=== PATIENT | female | born 1960 | race Caucasian/White ===

== ENCOUNTER 2021-09-20 14:43 | Emergency (ER) | payer OTHER, SELFPAY ==
[2021-09-20 14:48] VITALS: BP 150/74; PULSE 58; RESP 18; TEMP 36.6; O2SAT 99; BMI 26.6
--- NOTE | 2021-09-20 15:02 | CRLHL7_ITS ---
For Patients: As a result of the Century Cures Act, medical imaging exams and procedure reports are released immediately into your electronic medical record. You may view this report before your referring provider. If you have questions, please contact your health care provider. HISTORY: Left lower quadrant abdominal pain. TECHNIQUE: Noncontrast CT abdomen and pelvis. COMPARISON: No prior. FINDINGS: No focal liver parenchymal abnormality. Cholecystectomy. Dilatation of the extrahepatic bile duct may reflect postcholecystectomy reservoir effect changes. Spleen size within normal limits. The adrenal glands normal. No focal pancreatic abnormality. - On the left, there is severe hydronephrosis. There is a 6.5 mm calculus within the proximal left ureter as seen on image #87 of series 2. Other left retroperitoneal calcifications present close to the ureter are vascular in nature. There are intrarenal calculi within the left renal collecting system also present. On the right, there are intrarenal calculi. A fluid density right renal lesion inferiorly measures approximately 3.3 cm in size and may reflect a cyst. No right-sided hydronephrosis. No right ureteral calculus. Urinary bladder does not appear excessively distended. Small pelvic calcifications likely represent phleboliths. - Postsurgical changes of gastric bypass. A small hiatal hernia is present. There is no small bowel obstruction. No acute diverticulitis. - No abdominal aortic aneurysm. No adenopathy. - No consolidation within the lung bases nor pleural effusion. - Degenerative changes of the spine. No acute fractures. IMPRESSION: 1. On the left, severe hydronephrosis secondary to a 6.5 mm calculus within the proximal ureter. Additional intrarenal calculi are present on the left. 2. On the right, intrarenal calculi. No ureteral calculus or hydronephrosis. There is likely a cyst at the inferior pole of the right kidney. 3. Dilatation of the extrahepatic bile duct may reflect postcholecystectomy reservoir effect changes. 4. Postsurgical changes of gastric bypass. A small hiatal hernia is present. Dictated by Jose Roberto Vasquez MD @ 09/20/2021 4:16:23 PM Please note that all CT scans at this facility use dose modulation, iterative reconstruction, and/or weight-based dosing when appropriate to reduce radiation dose to as low as reasonably achievable. Dictated by: Jose Roberto Vaqsuez MD @ 09/20/2021 16:16:27 (Electronically Signed)
--- NOTE | 2021-09-20 15:07 | ED_ITS ---
HPI - General Adult General Chief complaint: Abdominal Pain Stated complaint: Left side pain Time Seen by Provider: 09/20/21 14:56 Source: patient Mode of arrival: ambulatory Limitations: no limitations History of Present Illness HPI narrative: 61-year-old female coming in today complaining of abdominal pain going on for approximately 3 hours. Pain came on suddenly located in the left lower quadrant radiates around to her back. She states she has vomited a few times. She has had about 5 bowel movements today which is usual for her. She denies any urinary symptoms such as increased frequency, urgency or dysuria. She denies any fevers or chills. Nothing seems to make the pain better or worse. She denies any blood in her urine or stools. No blood in her vomitus. No recent traveling. States that she has had bariatric surgery, cholecystectomy, appendectomy and a tubal ligation in the past. She also has a history of rheumatoid arthritis, migraine headaches, hyperlipidemia, TMJ disorder. States that her mother has had pancreatic cancer in sister had a twisted bowel in recent years. She states that she last had a colonoscopy all 7 years ago she believes it was normal. Related Data Home Medications Medication Instructions Recorded Confirmed adalimumab 40 mg/0.4 mL mg SUBCUT 09/20/21 subcutaneous pen kit (Humira(CF) Pen) atenolol 50 mg tablet mg 09/20/21 celecoxib 200 mg capsule mg 09/20/21 prednisone 1 mg tablet mg 09/20/21 rizatriptan 10 mg tablet mg 09/20/21 Allergies Allergy/AdvReac Type Severity Reaction Status Date / Time Penicillins Allergy Verified 09/20/21 14:47 Review of Systems Status of ROS: Reports: 10 or more systems reviewed and unremarkable except as noted in History and below [facility] Social History Smoking Status: Never smoker Do you use any of these nicotine containing products: None Second hand tobacco smoke exposure: No How often do you have a drink containing alcohol: monthly or less How often do you have six or more drinks on one occasion: Less than monthly AUDIT-C Alcohol total score: 2 Non-prescribed substance use: denies use Exam Narrative: Exam Narrative: Well-nourished well-developed patient who appears uncomfortable. Alert and oriented. Answers questions appropriately. Mood and affect are appropriate. Thoughts are goal oriented and rational. No tangential or magical thinking noted. Patient speaks in full sentences without needing to catch their breath. HEENT: Normocephalic atraumatic. Pupils are equally round reactive to light. Extraocular muscles are intact. Conjunctivae are moist without any icterus noted. Slightly dry mucous membranes. Posterior pharynx is normal. Neck is soft without any lymphadenopathy or thyromegaly. No masses are appreciated. Cardiovascular: Heart is regular rate and rhythm S1 and S2 are present without any murmurs. Lungs: Clear to auscultation bilaterally no wheezes rhonchi or rales are apprec iated. Patient takes deep breaths without any discomfort. Abdomen: Soft and nondistended. She does have left lower quadrant tenderness with palpation. No rebound tenderness. She has no CVA tenderness. Extremities: Bilateral lower extremities are without edema. Normal DP and PT pulses. Skin: Well perfused without any obvious rashes. Const: Vital Signs, click to edit/add: Vital Signs - 24 hr 09/20/21 14:48 09/20/21 16:15 09/20/21 16:30 Temperature 97.8 F Pulse Rate [Right Pulse Oximeter] 58 L 115 H 139 H Respiratory Rate 18 Blood Pressure [Ri ght Upper Arm] 150/74 H 121/72 126/93 H Pulse Oximetry 99 98 98 Course Course Hospital Course: IV was established and she was started on normal saline and IV Zofran. Labs were drawn. When it was clear that patient had a kidney stone seen on CT scan, we did go ahead and give her a dose of IV Toradol which significantly helped her symptoms. Vital Signs Vital signs: Initial Vital Signs Temperature 97.8 F 09/20/21 14:48 Temperature Source Temporal Artery Scan 09/20/21 14:48 Pulse Rate 58 L 09/20/21 14:48 Respiratory Rate 18 09/20/21 14:48 Blood Pressure 150/74 H 09/20/21 14:48 Blood Pressure Mean 99 09/20/21 14:48 Pulse Oximetry 99 09/20/21 14:48 Oxygen Delivery Method 09/20/21 14:48 Vital Signs Temperature 97.8 F 09/20/21 14:48 Pulse Rate 58 L 09/20/21 14:48 Respiratory Rate 18 09/20/21 14:48 Blood Pressure 150/74 H 09/20/21 14:48 Pulse Oximetry 99 09/20/21 14:48 Temperature 97.8 F 09/20/21 14:48 Pulse Rate 139 H 09/20/21 16:30 Respiratory Rate 18 09/20/21 14:48 Blood Pressure 126/93 H 09/20/21 16:30 Pulse Oximetry 98 09/20/21 16:30 Medical Decision Making MDM Narrative Medical decision making narrative: 61-year-old female with left-sided kidney stone and resulting hydronephrosis-no evidence of infection were changes in renal function. Pain was well controlled with Toradol in the ER today. She had no more episodes of vomiting. Patient will be discharged home with Toradol and Percocet to take as needed for the time being. She will call back 1st thing in the morning to set up an appointment with Urology. She understands if she develops a fever or pain that cannot be c ontrolled she will go ahead and return to the ED. Lab Data Lab results reviewed: Yes I reviewed the patient's lab results Labs: Lab Results 09/20/21 09/20/21 09/20/21 Range/Units 15:20 15:20 15:20 ESR 7 (2-20) mm/hr Sodium 140 (135-149) mmol/L Potassium 3.9 (3.6-5.1) mmol/L Chloride 107 (96-114) mmol/L Carbon Dioxide 28 (20-32) mmol/L BUN 11 (7-30) mg/dL Creatinine 0.8 (0.5-1.5) mg/dL Estimated Creat Clear 58.84 Estimated GFR 83 ml/min Glucose 133 H (60-115) mg/dL Lactate (0.5-1.9) mmol/L Calcium 8.9 (8.4-10.6) mg/dL Total Bilirubin 0.8 (0.1-1.5) mg/dL Direct Bilirubin 0.2 (0.0-0.5) mg/dL AST 31 (12-35) U/L ALT 32 (4-35) U/L Alkaline Phosphatase 104 (40-150) U/L C-Reactive Protein < 0.5 L (0.5-1.0) mg/dL Total Protein 7.2 (6.0-8.3) g/dL Albumin 4.4 (3.3-5.0) g/dL Lipase 185 (23-300) U/L Urine Color Yellow (Yellow) Urine Appearance Cloudy A (Clear) Urine pH 5.5 (5.0-8.5) Ur Specific [place] 1.025 (1.000-1.030) Urine Protein 1+ A (Negative) Urine Glucose (UA) Negative (Negative) Urine Ketones Negative (Negative) Urine Blood 2+ A (Negative) Urine Nitrite Positive A (Negative) Urine Bilirubin Negative (Negative) Urine Urobilinogen 0.2 (0.2-1.0) Ur Leukocyte Esterase 3+ A (Negative) Urine RBC 2-5 A (0-2) Urine WBC 25-50 A (0-5) Ur Squamous Epith Cells None (None-Few) Urine Bacteria Moderate A (None) 09/20/21 Range/Units 15:20 ESR (2-20) mm/hr Sodium (135-149) mmol/L Potassium (3.6-5.1) mmol/L Chloride (96-114) mmol/L Carbon Dioxide (20-32) mmol/L BUN (7-30) mg/dL Creatinine (0.5-1.5) mg/dL Estimated Creat Clear Estimated GFR ml/min Glucose (60-115) mg/dL Lactate 1.3 (0.5-1.9) mmol/L Calcium (8.4-10.6) mg/dL Total Bilirubin (0.1-1.5) mg/dL Direct Bilirubin (0.0-0.5) mg/dL AST (12-35) U/L ALT (4-35) U/L Alkaline Phosphatase (40-150) U/L C-Reactive Protein (0.5-1.0) mg/dL Total Protein (6.0-8.3) g/dL Albumin (3.3-5.0) g/dL Lipase (23-300) U/L Urine Color (Yellow) Urine Appearance (Clear) Urine pH (5.0-8.5) Ur Specific [place] (1.000-1.030) Urine Protein (Negative) Urine Glucose (UA) (Negative) Urine Ketones (Negative) Urine Blood (Negative) Urine Nitrite (Negative) Urine Bilirubin (Negative) Urine Urobilinogen (0.2-1.0) Ur Leukocyte Esterase (Negative) Urine RBC (0-2) Urine WBC (0-5) Ur Squamous Epith Cells (None-Few) Urine Bacteria (None) Imaging Data CT scan - abdomen: Attestation: I have reviewed the pertinent imaging results. Radiologist's impression: FINDINGS: No focal liver parenchymal abnormality. Cholecystectomy. Dilatation of the extrahepatic bile duct may reflect postcholecystectomy reservoir effect changes. Spleen size within normal limits. The adrenal glands normal. No focal pancreatic abnormality. - On the left, there is severe hydronephrosis. There is a 6.5 mm calculus within the proximal left ureter as seen on image #87 of series 2. Other left retroperitoneal calcifications present close to the ureter are vascular in nature. There are intrarenal calculi within the left renal collecting system also present. On the right, there are intrarenal calculi. A fluid density right renal lesion inferiorly measures approximately 3.3 cm in size and may reflect a cyst. No right-sided hydronephrosis. No right ureteral calculus. Urinary bladder does not appear excessively distended. Small pelvic calcifications likely represent phleboliths. - Postsurgical changes of gastric bypass. A small hiatal hernia is present. There is no small bowel obstruction. No acute diverticulitis. - No abdominal aortic aneurysm. No adenopathy. - No consolidation within the lung bases nor pleural effusion. - Degenerative changes of the spine. No acute fractures. IMPRESSION: 1. On the left, severe hydronephrosis secondary to a 6.5 mm calculus within the proximal ureter. Additional intrarenal calculi are present on the left. 2. On the right, intrarenal calculi. No ureteral calculus or hydronephrosis. There is likely a cyst at the inferior pole of the right kidney. 3. Dilatation of the extrahepatic bile duct may reflect postcholecystectomy reservoir effect changes. 4. Postsurgical changes of gastric bypass. A small hiatal hernia is present. Discharge Plan Discharge Clinical Impression: Hydronephrosis, Nephrolithiasis Patient Disposition: Home, Self-Care Condition: Stable Additional Instructions: Take Toradol as needed for pain. You can take a Percocet if needed also. We will give you the phone number to call 1st thing in the morning to set up an appointment with urologist-you will need to be seen by them in order to have that stone removed. In the event that your pain cannot be controlled or you develop a fever, you need to be seen in the ER again right away. Prescriptions sent to [facility] Prescriptions: No Action celecoxib 200 mg capsule 0RF Label Comments: TAKE ONE CAPSULE BY MOUTH TWICE DAILY rizatriptan 10 mg tablet 0RF prednisone 1 mg tablet 0RF atenolol 50 mg tablet 0RF Humira(CF) Pen 40 mg/0.4 mL pen injector kit SUBCUT 0RF Stand Alone Forms: [facility] Info Instructions
[2021-09-20] MEDS: ONDANSETRON 2 MG/ML inj 4 MG IVP (15:20)
[2021-09-20] MEDS: 0.9 % SODIUM CHLORIDE 1000 ml 1,000 ML IV (15:20)
[2021-09-20 15:31] LABS: Lactate* 1.3 mmol/L (0.5-1.9)
[2021-09-20 15:34] LABS: Appearance Urine Cloudy (Clear); Bilirubin Urine Negative (Negative); Blood Urine 2+ (Negative); Color Urine Yellow (Yellow); Glucose Urine Negative (Negative); Ketones Urine Negative (Negative); Leukocyte Esterase Urine 3+ (Negative); Nitrite Urine Positive (Negative); Protein Urine 1+ (Negative); Specific Gravity Urine 1.025 (1.000-1.030); Urobilinogen Urine 0.2 (0.2-1.0); pH Urine 5.5 (5.0-8.5)
[2021-09-20 15:48] LABS: Albumin* 4.4 g/dL (3.3-5.0); Chloride* 107 mmol/L (96-114)
[2021-09-20 15:49] LABS: Bacteria Urine Moderate; Potassium* 3.9 mmol/L (3.6-5.1); Sodium* 140 mmol/L (135-149); WBC Urine 25-50 (0-5)
[2021-09-20 15:51] LABS: Bilirubin Direct* 0.2 mg/dL (0.0-0.5); Bilirubin Total* 0.8 mg/dL (0.1-1.5); Carbon Dioxide* 28 mmol/L (20-32); Creatinine* 0.8 mg/dL (0.5-1.5); Est. Creatinine Clearance* 58.84; Estimated Glomerular Filt Rate 83 ml/min; Total Protein* 7.2 g/dL (6.0-8.3)
[2021-09-20] MEDS: KETOROLAC 30 MG/ML inj IVP (15:51)
[2021-09-20 15:52] LABS: Alanine Aminotransferase* 32 U/L (4-35); Alkaline Phosphatase* 104 U/L (40-150); Aspartate Amino Transferase* 31 U/L (12-35); Blood Urea Nitrogen* 11 mg/dL (7-30); Calcium* 8.9 mg/dL (8.4-10.6); Glucose* 133 mg/dL (60-115); Lipase* 185 U/L (23-300)
[2021-09-20 15:55] LABS: C Reactive Protein* < 0.5 mg/dL (0.5-1.0)
[2021-09-20 16:15] VITALS: BP 121/72; PULSE 115; O2SAT 98
[2021-09-20 16:19] LABS: Erythrocyte SedimentationRate* 7 mm/hr (2-20)
[2021-09-20 16:30] VITALS: BP 126/93; PULSE 139; O2SAT 98
== END 2021-09-20 16:50 | disposition home or self-care (01) ==
PROVIDERS: Emergency Provider Family Medicine; PCP Family Medicine
DX: N13.30 Unspecified hydronephrosis (principal); N20.0 Calculus of kidney
CPT/HCPCS: 36415; 74176; 80048; 80076; 81001; 83605; 83690; 85651; 86140; 87086; 87186; 96374; 96375; 99284; J1885; J2405; J7030